=== PATIENT | female | born 1955 | race Caucasian/White ===

== ENCOUNTER → 2024-05-08 | Outpatient (CLI) | payer MEDICARE ==
[2024-05-08 15:02] LABS: Alanine Aminotransfer (ALT/SGP 22 U/L (12-78); Albumin, Blood 4.1 g/dL (3.4-5.0); Albumin/Globulin Ratio 1.5 (0.8-1.8); Alk Phos 79 U/L (50-136); Anion Gap 8 mmol/L (3-11); Aspartate Aminotrans (AST/SGOT 19 U/L (12-37); Bilirubin, Total 0.5 mg/dL (0.1-1.0); Blood Urea Nitrogen 16 mg/dL (8-24); Bun/Creatinine Ratio 25.1 (12.0-20.0); CO2, Blood 29 mmol/L (21-32); Calcium, Blood 9.3 mg/dL (8.5-10.1); Chloride, Blood 107 mmol/L (98-108); Cholesterol 201 mg/dL (50-200); Creatinine, Blood 0.64 mg/dL (0.40-1.00); Globulin, Blood 2.7 g/dL (2.2-4.0); Glomerular Filtration Rate 97 (60-); Glucose, Blood 101 mg/dL (70-99); HDL Cholesterol 66 mg/dL (>39); LDL/HDL RATIO 1.8; Low Density Lipoprotein Chol 120 mg/dL (0-110); Potassium, Blood 4.1 mmol/L (3.5-5.5); Sodium, Blood 140 mmol/L (136-145); Total Protein, Blood 6.8 g/dL (6.4-8.2); Triglycerides 76 mg/dL (30-160); Very Low Density Lipoprot Chol 15 mg/dL (6-32)
== END ==
LOC: LAB SHORT 13:28 → LAB 13:28
PROVIDERS: Internal Medicine
DX: Z13.6 Encounter for screening for cardiovascular disorders (principal); R03.0 Elevated blood-pressure reading, without diagnosis of hypertension
CPT/HCPCS: 80053; 80061

== ENCOUNTER 2024-12-17 05:55 | Day surgery (SDC) | payer MEDICARE ==
[2024-12-17] VITALS (16 sets, daily range): BP systolic 122–165; BP diastolic 59–89
[~2024-12-17] VITALS: Ht 161 cm; Wt 60.3 kg
[~2024-12-17 05:55] MED LIST: ACET500; ASCO500 PO; BUPROPION XL150 M1 PO; Calcium Carbon500 MG; FISH OIL 1,0001 EA10 PO; LOSA25 PO; MAGCHL64ER; MELA3 PO; TURMERIC PO; VITAMIN D5000 UNIT PO; Vitamin B Comple1 EA PO; ZINC15; [UNRECOGNIZED DRUG - CODE] PO
[2024-12-17] MEDS ORDERED: Lactated Ringer's 1,000 ML IV SCH ×2 (06:10→08:00)
[2024-12-17] MEDS ORDERED: CeFAZolin Sodium 2,000 MG in NS 100 ML IV SCH ×2 (06:10→16:00)
[2024-12-17] MEDS ORDERED: Ropivacaine 0.5% HCl/Pf 123.125 MG,EPINEPHrine HCL 0.25 MG,Ketorolac Tromethamine 15 MG... INFIL SCH (06:10)
[2024-12-17] MEDS ORDERED: Tranexamic Acid 100 ML IV SCH (06:10)
[2024-12-17] MEDS ORDERED: Acetaminophen 500 MG Tab PO SCH ×3 (06:10→08:00)
[2024-12-17] MEDS ORDERED: Chlorhexidine Mouth Care 15 ML UDC MT SCH (06:10)
[2024-12-17] MEDS ORDERED: OxyCODONE HCL 10 MG TABCR PO SCH (06:10)
[2024-12-17] MEDS ORDERED: Vancomycin HCL 1,000 MG in NS 250 ML IV SCH (06:10)
[2024-12-17] MEDS ORDERED: CeFAZolin Sodium 2,000 MG VIAL ONE (06:31)
[2024-12-17] MEDS ORDERED: Midazolam HCl 1MG / ML 2ML Vial ONE (06:56)
[2024-12-17] MEDS ORDERED: FentaNYL Citrate 50 MCG/ML 2 ML Injection ONE (06:56)
[2024-12-17] MEDS ORDERED: propofoL 60 ML IV ONE (06:57)
[2024-12-17] MEDS ORDERED: Lidocaine HCl 2% 20 ML MDV ONE (06:57)
[2024-12-17] MEDS ORDERED: Dexamethasone Sod Phos 10 MG/ML 1ML VIAL ONE (06:57)
[2024-12-17] MEDS ORDERED: Ondansetron HCl 2 MG / ML 2ML Vial ONE (06:57)
--- NOTE | 2024-12-17 07:26 | NUR ---
Patient confirms NPO status and agrees with scheduled surgery. History, Chart, Medications and Allergies reviewed before start of procedure. Patient States Post-Procedure ride home has been arranged. Pt has her reading glasses in her belongings bag. Ambulatory in Day Surgery. Lungs clear T/O to Auscultation. Surgical site prepped with 2% Chlorhexidine cloth wipe. Pre-Op teaching done. Pt verbalizes understanding.
[2024-12-17] MEDS ORDERED: Promethazine HCl 25 MG Tab PO PRN (07:30)
[2024-12-17] MEDS ORDERED: Bisacodyl 10 MG Supp PR PRN (07:30)
[2024-12-17] MEDS ORDERED: DiphenhydrAMINE HCL 25 MG Cap PO PRN (07:30)
[2024-12-17] MEDS ORDERED: Ondansetron HCl 2 MG / ML 2ML Vial IV PRN ×2 (07:35→08:40)
[2024-12-17] MEDS ORDERED: HYDROmorphone HCl/Pf 1MG SYR IV PRN ×3 (07:35→08:45)
[2024-12-17] MEDS ORDERED: Magnesium Hydroxide Conc 10 ML UDC PO PRN (07:35)
[2024-12-17] MEDS ORDERED: Metoclopramide HCl 5MG / ML 2ML Vial IV PRN (07:35)
[2024-12-17] MEDS ORDERED: Prochlorperazine Edisylate 10 mg Vial IV PRN (07:40)
[2024-12-17] MEDS ORDERED: OxyCODONE HCL 5 MG TAB PO PRN ×2 (07:40)
[2024-12-17] MEDS ORDERED: Melatonin 5 MG Tablet PO PRN (07:45)
[2024-12-17] MEDS ORDERED: ePHEDrine Sulfate 50 MG/ML 1ML Injection IV PRN (08:40)
[2024-12-17] MEDS ORDERED: FentaNYL Citrate 50 MCG/ML 2 ML Injection IV PRN ×2 (08:40→08:45)
[2024-12-17] MEDS ORDERED: Labetalol HCL 5 MG/ML 4ML Injection (Single Dose) IV PRN (08:40)
[2024-12-17] MEDS ORDERED: Scopolamine Hydrobromide Patch TOP SCH (08:45)
[2024-12-17] MEDS ORDERED: Vitamin B Complex 1 EA Softgel PO SCH (09:00)
[2024-12-17] MEDS ORDERED: Cholecalciferol 1000 Unit Tablet (=25MCG) PO SCH (09:00)
[2024-12-17] MEDS ORDERED: Docusate Sodium 100 MG Cap PO SCH (09:00)
[2024-12-17] MEDS ORDERED: Ascorbic Acid 500 MG Tab PO SCH (09:00)
[2024-12-17] MEDS ORDERED: Aspirin 81 MG Chew PO SCH (09:00)
[2024-12-17] MEDS ORDERED: buPROPion HCL 150 MG TAB.SR.12H PO SCH ×2 (09:00→17:00)
[2024-12-17] MEDS ORDERED: Losartan Potassium 25 MG Tab PO SCH (09:00)
[2024-12-17] MEDS ORDERED: Phenylephrine HCl 100 MCG/ML-NS 10MLSYR (1MG/10ML) ONE (09:35)
[2024-12-17] MEDS ORDERED: propofoL 20 ML IV ONE (09:35)
--- NOTE | 2024-12-17 10:45 | NUR ---
POST OP ARRIVAL TO SURGICAL UNIT VIA HOSPITAL BED, ALERT, ORIENTED, & PLEASANT. LUNGS CLEAR. HRR. L HIP SOFT w/ SITES x 2 & LOWER LATERAL THIGH ALL w/ SOFT DRSG & TEGADERM. NO DRNG TO LOWER 2. SCANT RED SPOT TO UPPER DRSG. PPP. KNEE HIGH SAULO HISE & PAS ON. UNABLE TO WIGGLE TOES R/T SPINAL. DENIES PAIN TO HIP & REPORTS AMAYA. DENIES N/V. SNACKS & DRINKS GIVEN. FAMILY TO SIDE.
--- NOTE | 2024-12-17 11:14 | NUR ---
ASSUMING CARE OF PT FROM MICHELE Khoury RN. PT RESTING IN BED, CALL LIGHT IN REACH. FAMILY BEDSIDE.
[2024-12-17] MEDS ORDERED: Ketorolac Tromethamine 15mg Vial IV SCH (12:00)
--- NOTE | 2024-12-17 13:35 | NUR ---
[facility]/THERAPY IN TO SEE PT.
[2024-12-17] MEDS ORDERED: CODACE30 PO (14:40)
[2024-12-17] MEDS ORDERED: ASPI81CH PO (14:42)
[2024-12-17] MEDS ORDERED: OXYC5 PO (14:42)
[2024-12-17] MEDS ORDERED: SULTRIDS PO (14:43)
[2024-12-17] MEDS ORDERED: ONDA4ODT MM (14:52)
--- NOTE | 2024-12-17 17:02 | NUR ---
summary pt cleared physical therapy but became increasingly nauseated and was unable to work with occupational therapy. medicated per orders for n/v. pt did have episode of emesis. pt states nausea much improved at this time. ambulated to restroom and voided. now back to bed. spouse bedside. call light in reach.
[2024-12-17] MEDS ORDERED: Vancomycin HCL 1,000 MG in NS 250 ML IV ONE (19:00)
[2024-12-18 04:23] VITALS: BP 125/61
[2024-12-18 05:43] LABS: BASOPHILS ABSOLUTE AUTO 0.03 K/mm3 (0.00-0.23); BASOPHILS PERCENT AUTO 0 % (0-2); EOSINOPHILS ABSOLUTE AUTO 0.09 K/mm3 (0.00-0.68); EOSINOPHILS PERCENT AUTO 1 % (0-6); Hemoglobin 10.9 g/dL (11.5-16.0); IMMATURE GRAN ABSOLUTE AUTO 0.03 K/mm3 (0.00-0.10); IMMATURE GRAN PERCENT AUTO 0 % (0-1); LYMPHOCYTES ABSOLUTE AUTO 1.76 K/mm3 (0.84-5.20); LYMPHOCYTES PERCENT AUTO 19 % (21-46); MONOCYTES ABSOLUTE AUTO 0.79 K/mm3 (0.16-1.47); MONOCYTES PERCENT AUTO 9 % (4-13); Mean Corpuscular HGB 31.9 pg (26.0-34.0); Mean Corpuscular HGB Conc 35.2 g/dL (31.5-36.5); Mean Corpuscular Volume 91 fL (80-100); Mean Platelet Volume 10.3 fL (9.1-12.4); NEUTROPHILS ABSOLUTE AUTO 6.41 K/mm3 (1.96-9.15); NEUTROPHILS PERCENT AUTO 70 % (41-73); Platelet Count 184 K/mm3 (150-400); RDW Coefficient Variation 11.8 % (11.7-14.2); RDW Standard Deviation 38.7 fL (35.1-46.3); Red Blood Cell Count 3.42 M/mm3 (3.80-5.20); White Blood Cell Count 9.11 K/mm3 (4.00-11.30)
[2024-12-18 06:05] LABS: Bun/Creatinine Ratio 30.6 (12.0-20.0); Calcium, Blood 8.4 mg/dL (8.5-10.1); Creatinine, Blood 0.65 mg/dL (0.40-1.00); Magnesium, Blood 1.8 mg/dL (1.6-2.4); Potassium, Blood 3.8 mmol/L (3.5-5.5)
--- NOTE | 2024-12-18 06:51 | NUR ---
NOC SUMMARY- PT HAS BEEN AMBULATORY AND VOIDING. PT HAD A NEAR SYNCOPAL EPISODE THIS AM WITH SUDDEN ONSET OF N/V. SX'S RESOLVED. OTHOSTATIC VS WERE DONE AND WERE UNREMARKABLE. PT DENIES ANY MORE EPISODES. PT DRESSING ARE C/D/I. CALL LIGHT IN REACH.
[2024-12-18 07:04] VITALS: BP 144/62
[2024-12-18] MEDS ORDERED: Omega-3 Acid Ethyl Esters 1,000 MG CAP PO SCH (09:00)
[2024-12-18] MEDS ORDERED: Vitamin B Complex 1 EA Softgel PO SCH (09:00)
[2024-12-18] MEDS ORDERED: Trimethoprim/Sulfamethoxazole DS Tab PO SCH (09:00)
--- NOTE | 2024-12-18 11:19 | NUR ---
DISCHARGE PATIENT WORKS WITH THERAPY, TOLERATING PAIN MEDICATION, AND PO INTAKE. DENIES NAUSEA, VOIDING, AND PASSING GAS. DISCHARGE INSTRUCTIONS READ AND SIGNED. ALL PRESCRIPTIONS PICKED UP FROM PHARMACY. PATIENT LEAVES VIA PRIVATE CAR.
== END 2024-12-18 10:38 | disposition home or self-care (01) ==
LOC: ORSCMMR 05:55 → ORD 07:30 → ORSCMMR 07:30 → SURS 10:37 → ORSCMMR 12-18 10:38
PROVIDERS: Orthopaedic Surgery
PROC: 0SRB0JA Replacement of Left Hip Joint with Synthetic Substitute, Uncemented, Open Approach (ICD-10-PCS; principal; 2024-12-17 07:30)
DX: M16.12 Unilateral primary osteoarthritis, left hip (principal); I10 Essential (primary) hypertension; Z79.899 Other long term (current) drug therapy
CPT/HCPCS: 36415; 72170; 80048; 83735; 85025; 97110; 97116; 97162; 97165; 97530; 97535; A9270; C1713; C1776; J0171; J0690; J0735; J1100; J1885; J2250; J2371; J2405; J2704; J2765; J2795; J3010; J3370; J7050; J7120